=== PATIENT | female | born 1995 | race Caucasian/White ===

== ENCOUNTER 2021-04-02 22:40 | Emergency (ER) | payer MEDICAID ==
--- NOTE | 2021-04-02 23:19 | ERPHSYRPT ---
- History of Present Illness Time Seen by Provider: 04/02/21 22:50 Source: patient Exam Limitations: no limitations Patient Subjective Stated Complaint: got bit by a bug last night and its all swollen and red today Triage Nursing Assessment: Pt c/o bug bite to rt forearm, red and indurated, no warmth noted, approx 4cm L and 3.7 cm W. Pt c/o itching, denies any pain to the area. Pt has not taken any benadryl or tylenol or ibu. Pt has several scabbed areas and pink bite areas to bilat arms, pt states, "these are from fleas". Physician History: Patient is a 26-year-old female presents to our ED with complaints of infection and itching sensation at right forearm. Patient states that she was bitten by fleas. Patient states that she has an outside cat that tends to come indoors and carries fleas. Patient has been itching. Patient been scratching. The area right forearm has been exceptionally more itchy and she has been scratching more intensely. Patient scratch her skin and now it is indurated. No fever. No nausea or vomiting. No upper extremity numbness tingling or weakness. Patient denies pain. The area of involvement measures 4 cm x 3.7 cm. There are other scabbed areas on her upper extremities however these are healing well and did not show signs of infection. Patient is otherwise healthy. She voices no other complaints concerns at this time. Timing/Duration: yesterday Quality: itchy Severity: moderate Location: other (Right forearm) Possible Causes: insect bite Modifying Factors: Improves With: scratching Associated Symptoms: denies symptoms Allergies/Adverse Reactions: morphine Adverse Reaction (Intermediate, Verified 04/02/21 22:55) Itching Hx Tetanus, Diphtheria Vaccination/Date Given: Yes Hx Influenza Vaccination/Date Given: No Hx Pneumococcal Vaccination/Date Given: No Immunizations Up to Date: Yes Travel Risk - International Travel Have you traveled outside of the country in past 3 weeks: No - Coronavirus Screening Are you exhibiting any of the following symptoms?: No Close contact with a COVID-19 positive Pt in past 14-21 Days: No - Vaccine Status Have you recieved a Covid-19 vaccination: No - Review of Systems Constitutional: No Symptoms, No Fever, No Chills Eyes: No Symptoms Ears, Nose, & Throat: No Symptoms Respiratory: No Symptoms, No Cough, No Dyspnea Cardiac: No Symptoms, No Chest Pain, No Edema, No Syncope Abdominal/Gastrointestinal: No Symptoms, No Abdominal Pain, No Nausea, No Vomiting, No Diarrhea Genitourinary Symptoms: No Symptoms, No Dysuria Musculoskeletal: No Symptoms, No Back Pain, No Neck Pain Skin: No Symptoms, No Rash Neurological: No Symptoms, No Dizziness, No Focal Weakness, No Sensory Changes Psychological: No Symptoms Endocrine: No Symptoms Hematologic/Lymphatic: No Symptoms Immunological/Allergic: No Symptoms All Other Systems: Reviewed and Negative - Past Medical History Pertinent Past Medical History: Yes Neurological History: No Pertinent History ENT History: No Pertinent History Cardiac History: No Pertinent History Respiratory History: Asthma Endocrine Medical History: No Pertinent History Musculoskeletal History: No Pertinent History GI Medical History: Gallbladder Disease History: No Pertinent History Psycho-Social History: Depression Female Reproductive Disorders: No Pertinent History Other Medical History: numb left leg - Past Surgical History Past Surgical History: No - Social History Smoking Status: Current every day smoker How long have you smoked: 18 yrs Exposure to second hand smoke: Yes Drug Use: marijuana Patient Lives Alone: No - Female History Hx Now: No - Nursing Vital Signs Nursing Vital Signs: Initial Vital Signs Temperature 98.3 F 04/02/21 22:40 Pulse Rate 76 04/02/21 22:40 Respiratory Rate 20 04/02/21 22:40 Blood Pressure 117/83 04/02/21 22:40 O2 Sat by Pulse Oximetry 98 04/02/21 22:40 Pain Scale Pain Intensity 0 - Physical Exam General Appearance: no apparent distress, alert Eye Exam: PERRL/EOMI, eyes nml inspection Ears, Nose, Throat Exam: normal ENT inspection, pharynx normal, moist mucous membranes Neck Exam: normal inspection, non-tender, supple, full range of motion Respiratory Exam: normal breath sounds, lungs clear, airway intact, No respiratory distress Cardiovascular Exam: regular rate/rhythm, normal heart sounds, normal peripheral pulses Gastrointestinal/Abdomen Exam: soft, mass, No tenderness Back Exam: normal inspection, normal range of motion, No CVA tenderness, No vertebral tenderness Extremity Exam: normal inspection, normal range of motion, other (Right volar forearm there is a circular area of induration measuring 4 cm x 3.7 cm. No open or draining lesions. No lymphangitis. No lymphadenopathy. The involved extremity is neurovascular intact distally.) Neurologic Exam: alert, oriented x 3, cooperative, normal mood/affect, sensation nml, No motor deficits Skin Exam: normal color, warm, dry Lymphatic Exam: No adenopathy SpO2 Interpretation: normal SpO2: 98 O2 Delivery: Room Air - Course Nursing assessment & vital signs reviewed: Yes - Progress Progress Note: No indication for further work-up. A prescription for Keflex and Benadryl was forwarded to patient's pharmacy. Patient is comfortable at this time. She denies pain. No active itching. Patient agrees to follow-up with her primary care doctor within 48 hours for reevaluation. Patient voices no other complaints or concerns at this time. Will discharge home. Portions of this note were created with voice recognition technology. There may be grammatical, spelling, punctuation or sound alike errors 04/02/21 23:29 Counseled pt/family regarding: diagnosis, need for follow-up - Departure Departure Disposition: Home Clinical Impression: Insect bite, Cellulitis, Itching Condition: Stable Critical Care Time: No Prescriptions: Diphenhydramine HCl 25 mg [Benadryl 25 mg Capsule] 25 mg PO Q6HPRN PRN #20 tab PRN Reason: Itching Cephalexin Mh 500 mg [Keflex 500 mg] 500 mg PO TID 7 Days #21 cap
[2021-04-02 23:29] VITALS: BP 120/70; PULSE 60
[2021-04-02 23:30] VITALS: O2SAT 98
== END 2021-04-02 23:30 | disposition home or self-care (01) ==
LOC: ED 22:40
DX: L03.113 Cellulitis of right upper limb (principal); L29.9 Pruritus, unspecified; S40.861A Insect bite (nonvenomous) of right upper arm, initial encounter
CPT/HCPCS: 99283

== ENCOUNTER 2021-09-10 10:12 | Emergency (ER) | payer MEDICAID ==
[2021-09-10 10:35] VITALS: BP 140/88; PULSE 100; O2SAT 99
--- NOTE | 2021-09-10 10:36 | ERPHSYRPT ---
- History of Present Illness Time Seen by Provider: 09/10/21 10:30 Source: patient Exam Limitations: no limitations Physician History: This is a 26-year-old white female who smells of alcohol and presents with a fall injury to the head. She has a laceration on her forehead. Patient states that she does not recall the fall much but was aware that when she hit her head that there is a laceration present. She denies neck pain. There are no other areas of injury or pain Timing/Duration: today Quality: painful Severity: mild Location: face Associated Symptoms: denies symptoms Allergies/Adverse Reactions: morphine Adverse Reaction (Intermediate, Verified 09/10/21 10:35) Itching Home Medications: No Reportable Medications [No Reported Medications] 09/10/21 [History] Hx Tetanus, Diphtheria Vaccination/Date Given: Yes Hx Influenza Vaccination/Date Given: No Hx Pneumococcal Vaccination/Date Given: No Travel Risk - International Travel Have you traveled outside of the country in past 3 weeks: No - Coronavirus Screening Are you exhibiting any of the following symptoms?: No Close contact with a COVID-19 positive Pt in past 14-21 Days: No - Vaccine Status Have you recieved a Covid-19 vaccination: No - Review of Systems Constitutional: No Symptoms Eyes: No Symptoms Ears, Nose, & Throat: No Symptoms Respiratory: No Symptoms Cardiac: No Symptoms Abdominal/Gastrointestinal: No Symptoms Genitourinary Symptoms: No Symptoms Musculoskeletal: No Symptoms Skin: Other (Laceration left forehead) Neurological: Other (Patient smells of alcohol) Psychological: No Symptoms Endocrine: No Symptoms Hematologic/Lymphatic: No Symptoms Immunological/Allergic: No Symptoms All Other Systems: Reviewed and Negative - Past Medical History Pertinent Past Medical History: Yes Neurological History: No Pertinent History ENT History: No Pertinent History Cardiac History: No Pertinent History Respiratory History: Asthma Endocrine Medical History: No Pertinent History Musculoskeletal History: No Pertinent History GI Medical History: Gallbladder Disease History: No Pertinent History Psycho-Social History: Depression Female Reproductive Disorders: No Pertinent History Other Medical History: numb left leg - Past Surgical History Past Surgical History: No - Social History Smoking Status: Current every day smoker How long have you smoked: 18 yrs Exposure to second hand smoke: Yes Drug Use: marijuana Patient Lives Alone: No - Nursing Vital Signs Nursing Vital Signs: Initial Vital Signs Temperature 97.7 F 09/10/21 10:24 Pulse Rate 100 H 09/10/21 10:24 Blood Pressure 140/88 09/10/21 10:24 O2 Sat by Pulse Oximetry 99 09/10/21 10:24 Pain Scale Pain Intensity 10 - Physical Exam General Appearance: no apparent distress, alert, anxiety Eye Exam: PERRL/EOMI, eyes nml inspection Ears, Nose, Throat Exam: normal ENT inspection, moist mucous membranes Neck Exam: normal inspection, non-tender, supple, full range of motion Respiratory Exam: normal breath sounds, lungs clear, airway intact, No chest tenderness, No respiratory distress Gastrointestinal/Abdomen Exam: No tenderness Pelvic Exam: not done Rectal Exam: not done Back Exam: normal inspection, normal range of motion, No CVA tenderness, No vertebral tenderness Extremity Exam: normal inspection, normal range of motion, pelvis stable Neurologic Exam: alert, oriented x 3, cooperative, 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 Expiration was performed to the base in a bloodless field.) Irrigated: Yes Hibiclens Prep: Yes Anesthesia: local, 1% Lidocaine (Approximately 2 mL) Volume Anesthetic (ccs): 2 Wound Repaired With: sutures Suture Size/Type: 4-0, nylon Number of Sutures: 3 Layer Closure?: No - Course Nursing assessment & vital signs reviewed: Yes Ordered Tests: Active Orders 24 hr Category Date Time Status HEAD WITHOUT CONTRAST [CT] Stat Exams 09/10/21 11:05 Completed Medication Summary Discontinued Medications Generic Name Dose Route Start Last Admin Trade Name Freq PRN Reason Stop Dose Admin Bacitracin Zinc 0.9 gm 09/10/21 11:04 09/10/21 11:08 Bacitracin Packet 0.9 Gm Pckt TP 09/10/21 11:05 0.9 gm STAT ONE Administration Lidocaine HCl 5 ml 09/10/21 11:04 09/10/21 11:08 Lidocaine Hcl 1% 20 Ml Mdv 20 Ml Ml IJ 09/10/21 11:05 5 ml STAT ONE Administration - Progress Progress: improved Progress Note: 09/10/21 12:[address] without contrast exam Counseled pt/family regarding: diagnosis, need for follow-up, rad results - Departure Departure Disposition: Home Clinical Impression: Fall with injury, Forehead laceration Condition: Stable Critical Care Time: No Referrals: DOCTOR,NO FAMILY [Primary Care Provider] - Follow up/PCP as directed Additional Instructions: Keep the laceration site dry for 24 hours. After 24 hours may wash the site daily with soap and water. Blot dry use a hairdryer and apply antibiotic ointment of choice to the site each day. Suture removal in 5 to 7 days. Use Tylenol and ibuprofen for pain control.
[2021-09-10] MEDS ORDERED: XYLOCAINE 1% HCL 20 ML MDV IJ ONE (11:04)
[2021-09-10] MEDS ORDERED: BACIGUENT PACKET TP ONE (11:04)
--- NOTE | 2021-09-10 12:10 | XRAY ---
Indication: Laceration following fall. Multiple contiguous axial images obtained through the head without contrast. Comparison: None Minimal left frontal scalp soft tissue swelling/laceration. Normal appearing brain parenchyma, ventricles, and bony calvarium. Visualized paranasal sinuses and mastoid air cells are clear. Impression: Left frontal scalp soft tissue swelling/laceration. Normal CT head without contrast exam.
== END 2021-09-10 12:19 | disposition home or self-care (01) ==
LOC: ED 10:12
DX: S01.81XA Laceration without foreign body of other part of head, initial encounter (principal); W19.XXXA Unspecified fall, initial encounter; Z72.0 Tobacco use
CPT/HCPCS: 12011; 70450; 96372; 99284; A9270-GY